=== PATIENT | male | born 1970 | race Caucasian/White ===

== ENCOUNTER 2023-09-26 21:26 | Emergency (ER) | payer OTHER ==
[2023-09-26 21:37] VITALS: BP 92/69; PULSE 124; RESP 20; TEMP 98.2; BMI 40.6
[2023-09-26] MEDS ORDERED: ASPIRIN 81 MG CHEWABLE TABLETS ONE (22:09)
[2023-09-26] MEDS: ASPIRIN 81 MG CHEWABLE TABLETS PO ONE (22:12)
[2023-09-26] MEDS ORDERED: ACETAMINOPHEN INJECTION 100 ML IVPB ONE (22:15)
[2023-09-26] MEDS ORDERED: ALBUTEROL SO4 2.5/IPRATROPIUM 0.5 INH SOL 3 ML VIAL.NEB. NEB ONE (22:15)
[2023-09-26] MEDS: ACETAMINOPHEN 1000 MG/100 ML BAG IVPB ONE (23:15)
[2023-09-26 23:16] LABS: BASO % 0.8 % (0-2.0); EOS % 5.4 % (0-4.5); HEMATOCRIT 40.3 % (35.4-49); HEMOGLOBIN 13.9 GM/dL (11.7-16.9); MCH 30.9 pg (25.7-33.7); MCHC 34.6 g/dl (32.0-35.9); MEAN CELL VOLUME 89.4 fl (80-96); MEAN PLT VOLUME 7.4 fl (7.5-11.1); NEUT % 51.8 % (42.8-82.8); PLATELET COUNT 387 10^3/uL (134-434); RBC 4.51 M/mm3 (4.00-5.60); RDW 13.4 % (11.9-15.9); VENOUS BASE EXCESS 1.3 mmol/L (-2-2); VENOUS O2 SATURATION 39.8 % (70-80); VENOUS PCO2 37.8 mmHg (38-52); VENOUS PH 7.442 (7.310-7.410); WHITE BLOOD COUNT 10.2 K/mm3 (4.0-10.0)
[2023-09-26] MEDS: ALBUTEROL SO4 2.5/IPRATROPIUM 0.5 INH SOL 3 ML VIAL.NEB. NEB SCH (23:16)
[2023-09-26 23:22] LABS: INR 1.01 (0.83-1.09); PROTHROMBIN TIME (PATIENT) 11.4 SEC (9.7-13.0)
[2023-09-26 23:24] LABS: ACTIVATED PTT 26.9 SECONDS (25.2-36.5)
[2023-09-26 23:35] LABS: POTASSIUM 4.1 mmol/L (3.5-5.1)
[2023-09-26 23:38] LABS: ALBUMIN 3.8 g/dl (3.4-5.0); CALCIUM 9.3 mg/dL (8.5-10.1); MAGNESIUM 1.9 mg/dL (1.8-2.4)
[2023-09-26 23:41] LABS: CREATININE 1.1 mg/dL (0.55-1.3)
[2023-09-26 23:43] LABS: BILIRUBIN,TOTAL 0.6 mg/dL (0.2-1); TOT PROT 6.9 g/dl (6.4-8.2)
[2023-09-26 23:46] LABS: N-TERMINAL BNP 13.7 pg/ml (5-125)
[2023-09-27] MEDS ORDERED: MAG HYDROX/AL HYDROX/SIMETH 30 ML UNIT-DOSE CUP ONE (00:15)
[2023-09-27] MEDS ORDERED: FAMOTIDINE 20 MG/50 ML IVPB 20 MG/50 ML MG IVPB ONE (00:15)
[2023-09-27] MEDS: MAG HYDROX/AL HYDROX/SIMETH 30 ML UNIT-DOSE CUP PO ONE (00:22)
[2023-09-27] MEDS: FAMOTIDINE 20 MG/50 ML IVPB 20 MG/50 ML MG IVPB ONE (00:22)
[2023-09-27] MEDS ORDERED: morphine SULFATE 4 MG/ML VIAL ONE (01:11)
[2023-09-27] MEDS: morphine CARPU-JECT 4 MG/1 ML DISP.SYRIN IVPUSH ONE (01:17)
== END 2023-09-27 03:50 | disposition left against medical advice (07) ==
LOC: JER 21:26
DX: R07.89 Other chest pain (principal); R06.02 Shortness of breath; R53.1 Weakness; R11.2 Nausea with vomiting, unspecified; R19.7 Diarrhea, unspecified; R51.9 Headache, unspecified; R00.0 Tachycardia, unspecified; Z20.822 Contact with and (suspected) exposure to COVID-19
CPT/HCPCS: 0241U-QW; 36415; 71045-TC-FY; 71275-TC; 76705-TC; 80053; 82550; 82803; 83690; 83735; 83880; 84443; 84484; 85025; 85610; 85730; 86850; 86900; 86901; 93005; 93010; 99285-25; J0131; Q9967